=== PATIENT | female | born 1960 | race Two or more races ===

== ENCOUNTER → 2019-02-25 | Outpatient (CLI) | payer OTHER ==
--- NOTE | 2019-02-25 15:22 | RAD ---
DATE: 02/25/2019 EXAM: DIGITAL DIAGNOSTIC BILATERAL, BREAST BILATERAL HISTORY: Left breast lumps, pain COMPARISON: None available This study was interpreted with the benefit of Computerized Aided Detection (CAD). Breast Density: HETERO The breast parenchyma is heterogenously dense, which could reduce sensitivity of mammography. Breast parenchyma level C. FINDINGS: 2-D views of both breasts were obtained in CC and MLO projections. 3-D tomosynthesis imaging was also performed on the left in CC and MLO projections. A BB was placed on the skin surface over the area of palpable concern at the 10:00 location. The other area of reported concern was at the 2:00 location, however, the patient could not pinpoint a palpable abnormality at this time. No suspicious breast densities or architectural distortion is seen. There is minimal benign type calcification. No suspicious microcalcifications are evident. Left breast ultrasound, 02/25/2019: A targeted ultrasound exam was performed in the areas of reported clinical concern at the 10:00 and 1-2:00 locations in the left breast. The fibroglandular tissues are heterogeneous. At the 10:00 location approximately 4 1/2 cm in the nipple there is a tiny 4 mm cyst. No other unusual fluid collection or solid mass is seen at either location. IMPRESSION: 1. There is no mammographic evidence of malignancy in either breast. 2. A targeted ultrasound exam of left breast demonstrates a tiny cyst at the 10:00 location. No suspicious breast lesion is seen. 3. Clinical surveillance is suggested. BI-RADS CATEGORY: 2 BENIGN FINDING(S) RECOMMENDED FOLLOW-UP: 12M 12 MONTH FOLLOW-UP PQRS compliance statement: Patient information was entered into a reminder system with a target due date for the next mammogram. Mammography is a sensitive method for finding small breast cancers, but it does not detect them all and is not a substitute for careful clinical examination. A negative mammogram does not negate a clinically suspicious finding and should not result in delay in biopsying a clinically suspicious abnormality. "Our facility is accredited by the [employer] Mammography [employer]."
== END | disposition home or self-care (01) ==
LOC: MAMMO 13:20
PROVIDERS: ATTEND Nurse Practitioner Family
DX: N63.20 Unspecified lump in the left breast, unspecified quadrant (principal); E11.9 Type 2 diabetes mellitus without complications
CPT/HCPCS: 76641; 77066